=== PATIENT | female | born 2005 ===

== ENCOUNTER 2025-04-01 21:25 | Observation (INO) | payer OTHER ==
[~2025-04-01] VITALS: Ht 160 cm; Wt 59.0 kg
[2025-04-01 22:31] LABS: BASOPHILS ABSOLUTE AUTO 0.01 K/mm3 (0.00-0.23); BASOPHILS PERCENT AUTO 0 % (0-2); EOSINOPHILS ABSOLUTE AUTO 0.04 K/mm3 (0.00-0.68); EOSINOPHILS PERCENT AUTO 1 % (0-6); Hematocrit 31.6 % (33.0-51.0); Hemoglobin 10.2 g/dL (11.5-16.0); IMMATURE GRAN ABSOLUTE AUTO 0.06 K/mm3 (0.00-0.10); IMMATURE GRAN PERCENT AUTO 1 % (0-1); LYMPHOCYTES ABSOLUTE AUTO 1.11 K/mm3 (0.84-5.20); LYMPHOCYTES PERCENT AUTO 23 % (21-46); MONOCYTES ABSOLUTE AUTO 0.85 K/mm3 (0.16-1.47); MONOCYTES PERCENT AUTO 17 % (4-13); Mean Corpuscular HGB Conc 32.3 g/dL (31.5-36.5); Mean Corpuscular Volume 75 fL (80-100); NEUTROPHILS ABSOLUTE AUTO 2.82 K/mm3 (1.96-9.15); NEUTROPHILS PERCENT AUTO 58 % (41-73); NRBC ABSOLUTE 0.00 K/mm3 (0.00-0.02); NRBC Auto 0.0 /100 WBC (0.0-0.2); Platelet Count 432 K/mm3 (150-400); RDW Coefficient Variation 16.2 % (11.7-14.2); RDW Standard Deviation 44.2 fL (35.1-46.3)
[2025-04-01 23:11] LABS: Alanine Aminotransfer (ALT/SGP 174.0 U/L (12-78); Albumin, Blood 3.2 g/dL (3.4-5.0); Albumin/Globulin Ratio 0.6 (0.8-1.8); Anion Gap 10.0 mmol/L (3-11); Aspartate Aminotrans (AST/SGOT 116.0 U/L (12-37); Bilirubin, Total 0.9 mg/dL (0.1-1.0); Blood Urea Nitrogen 5.0 mg/dL (8-24); CO2, Blood 24.0 mmol/L (21-32); Calcium, Blood 9.2 mg/dL (8.5-10.1); Chloride, Blood 105.0 mmol/L (98-108); Creatinine, Blood 0.55 mg/dL (0.40-1.00); Ethanol (Alcohol), Blood, Med 7.0 mg/dL; Globulin, Blood 5.3 g/dL (2.2-4.0); Glucose, Blood 92.0 mg/dL (70-99); Potassium, Blood 3.3 mmol/L (3.5-5.5); Sodium, Blood 136.0 mmol/L (136-145); Total Protein, Blood 8.5 g/dL (6.4-8.2)
[2025-04-02 00:28] LABS: Source, Urine Clean Catch
[2025-04-02 00:33] LABS: Bilirubin, Urine Neg (Neg); Glucose Qualitative, Urine Neg (Neg); Ketones, Urine 2+ (Neg); Leukocyte Esterase, Urine Neg (Neg); Protein, Urine Neg (Neg); Specific Gravity, Urine 1.010 (1.003-1.022); Urobilinogen, Urine NORM (Normal)
[2025-04-02 00:35] LABS: Color, Urine Yellow (P-Yellow)
[2025-04-02 00:52] LABS: U Amphetamine Screen Not Detected; U Barbituate Screen Not Detected; U Benzodiazapine Screen Not Detected; U Cannabinoids Screen Not Detected; U Cocaine Screen Not Detected; U Methadone Screen Not Detected; U Methamphetamine Screen Not Detected; U Opiates Screen Not Detected; U Phencyclidine Screen Not Detected
[2025-04-02 00:53] LABS: U Buprenorphine Screen Not Detected; U Oxycodone Screen Not Detected
== END 2025-04-02 14:12 | disposition home or self-care (01) ==
LOC: ER 21:25 → EOR 21:26
PROVIDERS: Student in an Organized Health Care Education/Training Program; ADMIT Emergency Medicine
DX: F23 Brief psychotic disorder (principal)
CPT/HCPCS: 80053; 80320; 81003; 84703; 85025; 99285; A9270; G0378

== ENCOUNTER 2025-04-02 12:39 | Inpatient (IN) | payer OTHER ==
[~2025-04-02] VITALS: Ht 180.3 cm; Wt 54.0 kg
[2025-04-02] MEDS ORDERED: Haloperidol Lactate Inj. 5 MG/ML Injection IM PRN (13:50)
[2025-04-02] MEDS ORDERED: DiphenhydrAMINE HCl 50 MG/ML 1ML Vial IM PRN (13:50)
[2025-04-02] MEDS ORDERED: Aluminum Hydroxide 320MG/5ML 473 ML PO PRN (13:50)
[2025-04-02] MEDS ORDERED: Ondansetron 4 MG SoluTab MM PRN (13:55)
[2025-04-02] MEDS ORDERED: Polyethylene Glycol 3350 17 gm PO PRN (13:55)
[2025-04-02 14:24] VITALS: BP 122/75
[2025-04-02 14:46] VITALS: BP 122/75
--- NOTE | 2025-04-02 16:27 | NUR ---
ADMISSION ASSESSMENT: 14:08 PT WAS BROUGHT TO [facility] FROM [facility]. TWO NURSE SKIN AND SCALP CHECK WAS COMPLETED, NO LICE DETECTED AND NO WOUNDS OR RASHES DETECTED. PT ANSWERED QUESTIONS, AND APPEARED TO BE RESPONDING TO INTERNAL STIMULI AT DIFFERENT TIMES DURING THE INTAKE PROCESS. SHE GOT ONTO THE FLOOR WITH HER FOOD AND DRINK AND THEN WENT BEHIND THIS COMMERCIAL ENGINEER AND SAT ON THE FLOOR. SHE WAS ENCOURAGED TO SIT IN THE CHAIR. SHE COOPERATED AND SAID, "I'M FEARFUL FOR MY LIFE." PT WAS REASURED THAT NO ONE CAN GET INTO [facility] WITHUUT CORRECT KEYS AND BADGES, AT THAT TIME SHE SEEMED TO RELAX. PT WAS ORIENTED TO THE UNIT AND TO HER ROOM.
--- NOTE | 2025-04-02 17:11 | NUR ---
MEDICATION: This patient comming from [facility] ER did not have a valid medication list. [facility] in [facility] was contacted and faxed a list of most recent meds. The only psych med that is listed is CITALOPRAM 5 MG, THEN INCREASE TO 10 MG. Patient reports never picking up or trying this medication. She said it was to replace prozac. Prozac was not listed. She also states that Lamictal was prescribed at one time but that is not listed. On the list, three RESPIRATORY MEDS are listed (03/03/25) IPRATROIUM-ALBUTEROL 0.5MG - 3MG BENZONATATE 100 MG ORAL CAP EVERY 8 FOR COUGH PRN ALVESCO 80 MCG ACTUATION INHAL HFFA 6.1 GM PRN 1 PUFF EVERY AM AND PM FPRE PREVENTION OF BREATHING PROBLEMS. Patient does endorse asthma. 10/15/23- NEXPLANON 68MG IMPLANT, ETONOGESTREL 68MG SDRM IMPLANT
--- NOTE | 2025-04-02 17:52 | NUR ---
PT HAS BEEN ACTIVE IN THE PT MILIEU SINCE ADMISSION. HER SO IS VISITING CURRENTLY AND THE VISIT SEEMS TO BE GOING WELL.
--- NOTE | 2025-04-02 19:46 | NUR ---
PT BELONGINGS RN FROM ED CALLED AND REPORTED THAT THE PT DID NOT HAVE A CELL PHONE OR LAPTOP IN HER BELONGINGS WHEN SHE PRESENTED TO THE EMERGENCY ROOM.
[2025-04-02 22:34] VITALS: BP 108/81
--- NOTE | 2025-04-03 00:09 | NUR ---
MID SHIFT SUMMARY PT IN BED AT START OF SHIFT, AWAKES EASILY SHE STATES "I THINK I JUST NEED TO SLEEP". SHE DENIES ANY SI, HI, THOUGHTS OF SELF HARM OR AVTH. NO INTERNAL STIMULI NOTED ON INITIAL ASSESSMENT. PT IS CONFUSED, UNSURE OF WHERE SHE IS OR THE YEAR. ORIENTED TO SELF ONLY. CIWA SCORE WAS 4. PT STATED SHE JUST WANTED TO SLEEP AND DENIED ANY NEEDS. SHE DECLINED TO GET UP FOR EVENING SNACK AND REMAINED IN BED. AT [facility] 2340 PT PRESENTED TO THE NURSES STATION, APPEARS TO BE RESPONDING TO INTERNAL STIMULI, SHE NODDED HER HEAD YES TO FEELING SCARED AND ANXIOUS. ATTEMPTED TO RE-ORIENT PT TO CURRENT SITUATION. MASS SCORE OF 2. CURRENT CIWA SCORE OF 7. OFFERED PRN HYDROXYZINE AND PT STATED SHE WOULD LIKE SOME. SHE REQUIRED DIRECTIONS ON TAKING THE PILL AND DRINKING WATER. THIS RN WALKED PT BACK TO HER ROOM, SHE USED THE RESTROOM AND WENT BACK TO BED. Q15 MINUTE CHECKS TO CONTINUE PER PT SAFETY.
--- NOTE | 2025-04-03 05:22 | NUR ---
END OF SHIFT UPDATE PT HAD BEEN SLEEPING UNTIL SHORTLY AFTER 0400, SHE WAS STANDING BY HER ROOMMATES BED, WITH NO CLOTHES ON AND A BLANKET WRAPPED AROUND HER. PT REMAINS CONFUSED, STATES SHE SPILT WATER ON HER SCRUBS. PROVIDED NEW SCRUBS AND PT CONTINUALLY APOLOGIZING. SHE LAID BACK IN BED, BUT BECAME INCREASINGLY IMPULSIVE, SITTING ON ROOMMATES BED, MAKING ROOMMATES BED, REPORTED FEELING NERVOUS AND ANXIOUS. OCEAN EXPORT ACCOUNT MANAGER ASSESSED PT AT 0500 AND MEDICATED WITH PRN HYDROXYZINE FOR MASS SCORE OF 11. PT IS CURRENTLY RESTING QUIETLY IN BED. Q15 MINUTE CHECKS TO CONTINUE PER PT SAFETY.
[2025-04-03 08:09] LABS: CHOL/HDL RATIO 7.4; Cholesterol 141 mg/dL (50-200); HDL Cholesterol 19 mg/dL (>39); LDL/HDL RATIO 5.3; Low Density Lipoprotein Chol 100 mg/dL (0-110); Triglycerides 110 mg/dL (30-140); Very Low Density Lipoprot Chol 22 mg/dL (6-28)
[2025-04-03] MEDS ORDERED: Multivitamins 1 Tab PO SCH (09:00)
[2025-04-03 09:21] VITALS: BP 129/82
--- NOTE | 2025-04-03 17:41 | NUR ---
SHIFT SUMMARY PT VERY WITHDRAWN MOST ALL SHIFT UNTIL THIS AFTERNOON. SHE ATTENDED BKFT BUT DID NOT EAT. DURING ROUNDING, UNABLE TO LOCATE HER FOR A MOMENT AND SHE WAS FOUND CURLED UP IN A BALL, IN THE CORNER, UNDER THE TABLE IN THE DINING ROOM. PT DID NOT COMMUNICATE BUT WOULD SHAKE HEAD YES/NO TO QUESTIONS. SHE WAS MEDICATED FOR A MASS SCORE OF 9 AT 0900 WITH ATIVAN 2MG PO. SHE THEN SLEPT ON/OFF UNTIL LUNCH. PT WAS THEN UP FOR LUNCH, STILL NOT RESPONDING VERBALLY. SHE DID NOT EAT BKFT, AT LUNCH SHE DID NOT EAT. THIS RN SAT WITH HER FOLLOWING ALL OTHERS LEAVING. IT TOOK HER APPROX 20 MIN TO EAT A YOGURT, SHE DID NOT TALK. APPROX 30 MIN LATER, [facility] REPORTS PT UNDER HER BATHROOM SINK CURLED UP IN A BALL. NEXT ROUNDING CHECK PT HAD PULLED ALL BEDDING OFF AND HAD IT ON THE FLOOR, STATED THAT'S WHERE SHE LIKES IT. SHE THEN HAD A GREAT CONVERSATION WITH A. SINCE THAT TIME SHE HAS BEEN ACTIVE IN THE MILIEU AND ENGAGED WITH ALL ACTIVITIES. SHE HAS BEEN MED COMPLIANT. SHE HAS RECEIVED Q15 MIN VISUAL SAFETY CHECKS THROUGHOUT THIS SHIFT. LAST CIWA AT 1600 WAS 0
[2025-04-03 19:41] VITALS: BP 123/79
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
[2025-04-04 08:46] VITALS: BP 123/80
--- NOTE | 2025-04-04 16:31 | NUR ---
SHIFT SUMMARY PT HAS HAD A FAIRLY GOOD SHIFT WITH A COUPLE OF MOMENTS OF FEELING "SAD" AND BEING TEARFUL. SHE IS EASILY DISTRACTABLE AND WILL QUICKLY REDIRECT HER FEELINGS TO SOMETHING POSITIVE. SHE HAS BEEN UP AND INVOLVED IN THE MILIEU MOST ALL SHIFT AND ATTENDED A GROUP PUT ON BY ONE OF OUR RN's. SHE HAS BEEN COMPLIANT WITH HER MEDICATIONS. HAS DENIED SI/HI/AVH AND SHE HAS RECEIVED Q15 MIN VISUAL SAFETY CHECKS THROUGHOUT THIS SHIFT.
[2025-04-04 20:54] VITALS: BP 124/90
--- NOTE | 2025-04-05 04:29 | NUR ---
SHIFT SUMMARY: PATIENT WAS IN THE MILIEU COLORING AT THE BEGINNING OF THE SHIFT. SHE HAD C/O ANXIETY, AND WAS GIVEN VISTARIL, WHICH WAS SOMEWHAT EFFECTIVE. SHE LATER HAD C/O ANXIETY AND "PANIC" AND WAS GIVEN ATIVAN WITH GOOD EFFECT. SHE WAS ABLE TO ANSWER FIRE CONTROL MECHANIC QUESTIONS IN A MOSTLY LOGICAL AND LINEAR MANNER. SHE DENIED SUICIDAL IDEATION, THOUGHTS OF SELF HARMING AND A/V/T HALLUCINATIONS. SHE WAS POSSIBLY INTERACTING WITH UNSEEN OTHERS DURING HER MOMENT OF PANIC, SHE APPEARED TO BE RESPONDING. HOWEVER, WITHIN A HALF HOUR OF THE ATIVAN, SHE WAS NO LONGER DOING SO. SHE PARTICIPATED IN SNACK AND WAS COMPLIANT WITH EVENING MEDICATIONS. SHE WENT TO BED SHORTLY AFTER SNACK, AND WAS NOTED TO BE RESTING QUIETLY WITH EYES CLOSED AND RESPIRATIONS CONFIRMED FOR THE REMAINDER OF THE SHIFT. CONTINUING TO MONITOR FOR SAFETY WITH Q15 MINUTE CHECKS.
[2025-04-05 07:34] VITALS: BP 127/85
--- NOTE | 2025-04-05 17:49 | NUR ---
POSSIBLE DC INFORMATION KARLOJALEEL COLEGAUDENCIO IS PT'S AUNT [phone] SHE HAS OFFERED ASSISTANCE, IF NEEDED, IN FINDING HELP FOR RESOURCES IN THE [facility] AREA
--- NOTE | 2025-04-05 17:51 | NUR ---
SHIFT SUMMARY PT HAS HAD A GOOD DAY, SHE HAS BEEN UP IN THE MILIEU MOST ALL SHIFT AND ENGAGE WITH PEERS. SHE HAS ENDORSED SOME AUDITORY HALLUCINATION BUT CANNOT IDENTIFY FROM WHAT IT IS. PT'S S/O AND HER AUNT CAME FROM [facility] TO VISIT HER. THEY HAD A GREAT VISIT. HER AUNT TALKED WITH THIS RN AND OFFERED HER SUPPORT IN HELPING FIND RESOURSES IN THE [facility] AREA. PT HAS BEEN COMPLIANT WITH HER MEDS. HAD A FULL 15 MIN CONVERSATION WITH THIS RN, STRESSORS WITH HER WORK THAT LEAD UP TO THIS INCIDENT OCCURING. PT IS WELL SPOKEN AND WANTS TO DO WHATEVER IS NEEDED TO GET HOME. SHE HAS CONTINUED TO RECEIVE Q15 SAFETY CHECKS THROUGHOUT SHIFT.
[2025-04-05 20:38] VITALS: BP 114/85
--- NOTE | 2025-04-06 04:33 | NUR ---
SHIFT SUMMARY: PATIENT WAS UP IN THE MILIEU AT THE BEGINNING OF THE SHIFT. SHE WAS INTERACTING WELL WITH STAFF AND PEERS. SHE WAS ABLE TO ANSWER LEAD GENERATION REPRESENTATIVE QUESTIONS IN A LOGICAL AND LINEAR MANNER. SHE ADMITS TO "ANXIETY AND PANIC" AT TIMES, BUT WILL TELL HER NURSE WHEN THAT HAPPENS. SHE USES A COLD WASHCLOTH TO THE FACE, CHEWING ICE AND DRINKING HOT WATER COPING SKILLS. SHE DENIED SUICIDAL IDEATION, THOUGHTS OF SELF HARMING AND A/V/T HALLUCINATIONS THIS SHIFT. SHE PARTICIPATED IN SNACK AND WRAP UP GROUP AT 2030. SHE IS ADAPTING WELL TO HER ROOMMATE AND IS APPARENTLY ENJOYING INTERACTIONS WITH HER. SHE WENT TO BED SHORTLY AFTER EVENING MEDICATIONS AND WAS NOTED TO BE RESTING QUIETLY WITH EYES CLOSED AND RESPIRATIONS CONFIRMED. SHE WAS UP ABOUT 0400 DUE TO HER ROOMMATE BEING AWAKE, AND ASKED FOR HOT WATER TO SIP FOR HER ANXIETY, WHICH WAS EFFECTIVE. SHE WENT BACK TO BED SHORTLY AFTER AND WAS RESTING. CONTINUING TO MONITOR FOR SAFETY WITH Q15 MINUTE CHECKS.
[2025-04-06 09:14] VITALS: BP 129/82
--- NOTE | 2025-04-06 17:52 | NUR ---
SHIFT SUMMARY PT HAS HAD A GOOD DAY, SLIGHTLY TEARFUL AT ONE POINT BUT UPBEAT OTHER THAN THAT. SHE HAS BEEN UP ALL SHIFT, INVOLVED IN GROUPS AND THE MILIEU, COMPLIANT WITH HER MEDICATION. HER SIGNIFICANT OTHER CAME FOR A VISIT FROM [facility] TODAY AND THAT APPEARED TO GO VERY WELL. S/O ASKED ABOUT PICKING PT UP WHEN IT'S TIME TO DC HER. NOTE POSTED RE DC FOR [facility]. PT HAS HAD Q15 SAFETY CHECKS THIS SHIFT
--- NOTE | 2025-04-06 17:57 | NUR ---
D/C TRANSPORT INFO PT PARTNER, AGUILAR STATED HE COULD COME FROM [place] TO PROGRESS CLERK PT WHEN SHE IS READY FOR DC. HOWEVER, HE WOULD APPRECIATE A DAYS NOTICE FOR THE ARRANGEMENT.
[2025-04-06 20:58] VITALS: BP 121/76
--- NOTE | 2025-04-06 23:15 | NUR ---
MID SHIFT SUMMARY PT PRESENT IN MILIEU AT START OF SHIFT, TALKING WITH PEERS. HER MOOD IS ELEVATED AND SHE REPORTS FEELING ANXIOUS. MASS SCORE OF 3 AND SHE RECEIVED PRN VISTARIL. SHE ALSO REPORTED FEELING NAUSEATED ALL DAY AND RECEIVED ZOFRAN. SHE IS TALKATIVE AND COOPERATIVE WITH CARE. SHE DENIES ANY SI/HI OR THOUGHTS OF SELF HARM. WHEN ASKED IF SHE HAS ANY AVTH, SHE REPONDED "I THINK I MIGHT HEAR THINGS." SHE STATES SHE FEELS LIKE PEOPLE ARE ALWAYS TALKING ABOUT HER. SHE HAD EVENING SNACK AND ATTENDED WRAP UP GROUP. SHE WAS COMPLIANT WITH SCHEDULED MEDS AND REQUESTED AND RECEIVED PRN MELATONIN. PT WAS IN AND OUT OF GROUP ROOM THE REST OF THE NIGHT. AT 2200, PT REQUESTED AND RECEIVED PRN TRAZODONE, STATING SHE COULDN'T SLEEP. PT IS CURRENTLY RESTING QUIETLY IN BED. Q15 MINUTE CHECKS TO CONTINUE PER PT SAFETY.
--- NOTE | 2025-04-07 04:14 | NUR ---
END OF SHIFT UPDATE PT HAD BEEN SLEEPING UNTIL AROUND 0300. PT IN ROOM, STATED SHE WOKE UP AND WAS HAVING A PANIC ATTACK AND FELT VERY ANXIOUS. PT SHAKING AT TIMES AND STATES "THE VOICES ARE BACK". SHE STATES THE VOICES ARE SAYING "NICE THINGS" BUT DIDN'T ELABORATE. MASS SCORE OF 4 AND PT REQUESTED AND RECEIVED PRN ZYPREXA. PT ALSO C/O NECK PAIN, 3/10 AND REQUESTED AND RECEIVED PRN IBUPROFEN. SHE SAT AT NURSES STATION AND THEN THIS RN ASSISTED HER BACK TO BED. PT CURRENTLY APPEARS TO BE SLEEPING, WITH RESPIRATIONS CONFIRMED DURING Q15 MINUTE CHECKS.
[2025-04-07 08:04] VITALS: BP 119/81
--- NOTE | 2025-04-07 12:58 | NUR ---
MID SHIFT SUMMARY PT HAS BEEN UP AND ENGAGED THE FIRST HALF OF THIS SHIFT. SHE HAS BEEN COMPLIANT WITH MEDS AND ASKS APPROPRIATE QUESTIONS REGARDING MEDS. SHE CONTINUES TO IMPROVE, DENIES SI/HI/AVH
--- NOTE | 2025-04-07 16:01 | NUR ---
SHIFT ASSESSMENT: PT DENIED SI AND HI, SHE ENDORSED, "I HAVE INTRUSIVE THOUGHTS...I CAN'T TELL IF THERE ARE VOICES." SHE RATED HER ANXIETY LEVEL 7/10w. AND REPORTED HER MOOD , "SILLY...GOOFY AND SAD." PT HAS HAS BEEN PARTICIPATING IN GROUPS AND IN THE PT MILIEU.
--- NOTE | 2025-04-07 17:15 | NUR ---
PT'S GOAL, "TO UNDERSTAND WHAT I CAN DO FOR MY MENTAL HEALTH."
[2025-04-07 19:27] VITALS: BP 124/77
--- NOTE | 2025-04-08 04:16 | NUR ---
SHIFT SUMMARY PT PRESENT IN MILIEU AT START OF SHIFT, SHE REPORTS FEELING NAUSEATED AND REQUESTED AND RECEIVED PRN ZOFRAN WITH GOOD EFFECT. SHE DENIES ANY SI OR HI. SHE STATES THAT SHE IS UNSURE IF SHE HAS AUDITORY HALLUCINATIONS OR JUST INTRUSIVE THOUGHTS THAT EVERYONE IS AGAINST HER. SHE HAD EVENING SNACK AND PARTICIPATED IN WRAP UP GROUP. SHE WAS COMPLIANT WITH MEDS AND REQUESTED AND RECEIVED TRAZODONE TO ASSIST WITH SLEEPING AND TYLENOL FOR MUSCLE ACHES AND PAINS. SHE WENT TO HER ROOM AND VISITED WITH HER ROOMMATE BEFORE GOING TO BED. SHE HAS REMAINED IN BED THROUGHOUT THE NIGHT. Q15 MINUTE CHECKS TO CONTINUE PER PT SAFETY.
[2025-04-08 06:55] VITALS: BP 111/72
[2025-04-08 09:42] VITALS: BP 111/72
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
--- NOTE | 2025-04-08 15:21 | NUR ---
SHIFT ASSESSMENT: PT REPORTED HAVING SUICIDAL THOUGHTS, "ONLY ONES THAT I CAN CONTROL." SHE DENIED HI, SHE SAID, "I CAN'T TELL IF I'M HEARING VOICES IN MY HEAD OR IF IT'S THE PEOPLE AROUND ME. I AM HAVING INTRUSIVE THOUGHTS THAT I'M JUST MESSING EVERYTHING UP." SHE DESCRIBED HER MOOD , "ANXIOUS...I FEEL LIKE PEOPLE ARE SPEAKING UP ABOUT WHAT THEY NEED AND I FEEL LIKE I'M DOING SOMETHING WRONG."
[2025-04-08 19:32] VITALS: BP 111/71
--- NOTE | 2025-04-08 23:50 | NUR ---
PT IN DAY ROOM AT THE BEGINNING OF THE SHIFT. SHE DENIES SI, HI, AVTH. PT REPORTS THAT SHE IS DOING MUCH BETTER AND MUCH LESS ANXIOUS. SHE SAID THAT SHE GOT SOME GOOD NEWS TODAY ABOUT HOUSING BUT UPSET THAT IT HAPPENED WITHOUT HER. SHE REQUESTED TRAZODONE TO HELP WITH SLEEP TONIGHT. SHE ATTENDED SNACK AND WENT TO BED. PT CURRENTLY SLEEPING.
--- NOTE | 2025-04-09 04:01 | NUR ---
END OF SHIFT UPDATE ASSUMED CARE OF PT AT 0015. NO ACUTE CHANGES. PT HAS REMAINED IN BED THROUGHOUT THE NIGHT. Q15 MINUTE CHECKS TO CONTINUE PER PT SAFETY.
[2025-04-09 07:33] VITALS: BP 112/81
--- NOTE | 2025-04-09 17:15 | NUR ---
SHIFT SUMMARY NO ACUTE EVENTS TODAY. DENIES SI, HI, VTH. ENDORSES AUDITORY HALLUCINATIONS, BUT WHEN ASKED TO ELABORATE, PT STATED, "WHEN I HEAR PEOPLE TALKING, I THINK THEY'RE TALKING ABOUT ME.". APPEARS DO BE MORE SOCIAL ANXIETY/PARANOIA. PT DOES NOT ENDORSE HEARING VOICES OTHERWISE. INTERACTING W/ PEERS/STAFF. ATTENDING GROUPS, AND IS CURRENTLY OUTSIDE INTERACTING W/ PEERS.
[2025-04-09 19:15] VITALS: BP 117/80
--- NOTE | 2025-04-10 04:17 | NUR ---
SHIFT SUMMARY:. PT A/OX4. IS EXCITED ABOUT BEING DISCHARGED TOMORROW. DENIES TO BE SI, HI AND ATH. 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 PT IS IN A HAPPY MOOD AND IS CHEERFUL AFFECT. PT WENT TO SNACKAND PARTICIPATED IN THE WRAP UP. PT IN GROUP ROOM PLAYING CARDS AND TALKING WITH OTHERS. WILL CONTINUE TO MONITOR Q 15 MIN.
--- NOTE | 2025-04-10 08:21 | NUR ---
IMPORTANT DISCHARGE INFORMATION PATIENT TO BE DISCHARGED TODAY AROUND 4PM. HER SO IS COMMING TO PICK HER UP FROM [place] ([facility]) [phone]. ALL PARTIES VERBALIZE AN UNDERSTANDING. DAY[facility]NA HAS OUT OFF STATE INSURANCE. UNABLE TO FIND PCP TO TAKE INSURANCE. [facility] NOTIFIED AND SHE MAY USE THEIR OPEN DOOR SERVICES. [facility] M[facility], CRISIS AND URGENT CARE RESOURCES PROVIDED. PHARMACY: [facility] ON [facility] FAX NUMBER [phone]
[2025-04-10 08:27] VITALS: BP 126/77
--- NOTE | 2025-04-10 14:26 | NUR ---
SHIFT ASSESSMENT: PT DENIED SI AND HI. PT REPORTED, "I HEAR PEOPLE TALKING AND I THINK THEY ARE TALKING ABOUT ME. I HAVE INTRUSIVE THOUGHTS THAT I AM DOING SOMETHING WRONG. SHE REPORTED ANXIETY 8/10w AND BACK PAIN 4/10w, SHE LATER WAS GIVEN HYDROXYZINE 50 MG AND TYLENOL 650MG BOTH SHE REPORTED WERE EFFECTIVE. PT HAS ATTENDED GROUPS AND BEEN ACTIVE IN THE PT MILIEU. PT IS PLEASANT AND COOPERATIVE WITH CARE. SHE REPORTED HER MOOD , "SILLY...GOOFY...MEDS ARE WORKING."
[2025-04-10] MEDS ORDERED: OLAN10A MM (16:06)
[2025-04-10] MEDS ORDERED: TRAZ50 PO (16:07)
--- NOTE | 2025-04-10 17:10 | NUR ---
DISCHARGE NOTE: 1700 PT WAS DISCHARGED TO HOME WITH HER LIFE PARTNER. SHE LEFT [facility] WITH ALL OF HER BELONGINGS AND HER PRINTED DISCHARGE INSTRUCTIONS, SHE REPORTED UNDERSTANDING OF ALL INSTRUCTIONS AND APPOINTMENTS. PT EXPRESSED READINESS FOR DISCHARGE. NEW RX'S WERE FAXED TO [facility] ON [facility] [place].
== END 2025-04-10 17:00 | disposition home or self-care (01) | DRG 885 ==
LOC: BHU 12:39
PROVIDERS: ADMIT Psychiatry & Neurology Psychiatry
DX: F31.9 Bipolar disorder, unspecified (principal); F23 Brief psychotic disorder; Z91.012 Allergy to eggs; Z91.018 Allergy to other foods; Z79.899 Other long term (current) drug therapy
CPT/HCPCS: 36415; 80061; 83036; A9270